=== PATIENT | male | born 1950 | race African-American/Black ===

== ENCOUNTER 2016-05-02 05:41 | Inpatient (IN) | payer MEDICARE, BC ==
[2016-04-20 12:23] LABS: HEMATOCRIT 43.2 % (40.0-51.0); HEMOGLOBIN 14.4 g/dL (13.6-17.8)
[2016-04-20 12:42] LABS: CALCIUM, SERUM 9.1 MG/DL (8.5-10.4); CHLORIDE, SERUM 104 MMOL/L (96-112); CO2 (CARBON DIOXIDE) 28 MMOL/L (24-34); GFR AFRICAN AMERICAN 90 ML/MIN (>=60); GFR NON AFRICAN AMERICAN 78 ML/MIN (>=60); GLUCOSE, SERUM 96 MG/DL (60-99); POTASSIUM, SERUM 3.6 MMOL/L (3.5-5.3); SODIUM, SERUM 139 MMOL/L (135-148)
[2016-04-20 12:45] LABS: BUN (BLOOD UREA NITROGEN) 17 MG/DL (6-23)
--- NOTE | ~2016-05-02 | OP ---
Record Of Operation [facility] [address] [place]. [address] NAME: VINNIE GUERRERO : 46 STATUS : ADM IN PAT#: [id number] AGE: 66 ADM/REG DATE : 05/02/16 MR#: [id number] REPORT SERV DATE: 05/02/16 DICTATED BY: GERMÁN ROJO DATE: 05/02/16 REPORT STATUS : Draft TRANSCRIBED BY: MODL DATE: 05/02/16 DATE OF PROCEDURE: 05/02/2016 PREOPERATIVE DIAGNOSIS: Prostate cancer. POSTOPERATIVE DIAGNOSIS: Prostate cancer. PROCEDURE: Robotic-assisted laparoscopic radical prostatectomy. SURGEON: Germán Rojo M.D. PINKED EDGE SEWING MACHINE OPERATOR: DMITRIY Chappell. ANESTHESIA: General. PREOPERATIVE INDICATIONS: 66-year-old male with a negative family history of prostate cancer, presented with a PSA of 6.2, associated with a low percent free PSA of 6%. Biopsies disclosed a [place] 7, 4+3 prostate cancer on the right. Staging studies were negative. After reviewing his options, risks, alternatives, and benefits, he elected surgical management with a robotic approach. DESCRIPTION OF OPERATIVE PROCEDURE: Following adequate general anesthesia, the patient was placed in a modified lithotomy position well padded and secured to the table and placed in a steep Trendelenburg position. He was noted to be safely secured to the table and was returned to a level position where he was prepped and draped in the usual sterile fashion. A 16-Zimbabwean catheter was placed into the bladder from the operative field. Pneumoperitoneum was achieved with a Veress needle. A 12 mm port was placed in the left upper quadrant with the Optiview system. The camera was placed into the abdomen. The abdomen inspected. There were no abnormal findings. Under direct vision, the four robotic ports were placed as well as a left lower quadrant 5 mm port. The patient was then returned to a Trendelenburg position and docked to the robot. The bladder was taken down by incising laterally along the median umbilical ligaments to the level of the vas deferens bilaterally with the electrocautery shandra. The space of Retzius was developed bluntly. Fat was dissected off the anterior surface of the prostate sharply. The endopelvic fascia was incised bilaterally and a levator muscle swept off the lateral surface of the prostate bilaterally. The dorsal vein complex was dissected out, controlled, and divided with an endovascular JOVAN stapler. The bladder neck was incised at its junction with the base of the prostate with the electrocautery spatula. The bladder was entered. The catheter was grasped with a ProGrasp grasper and used for anterior retraction on the prostate. The posterior bladder neck was developed and incised with electrocautery spatula. A plane was bluntly developed between the prostate and bladder. Anterior Denonvilliers fascia was incised to expose the vas deferens and seminal vesicles. The vas deferens were dissected out bluntly, divided sharply, and the ends of the vas deferens grasped with the ProGrasp grasper and used for anterior retraction on the prostate. The seminal vesicles were dissected out bluntly. Their blood supply controlled with interlocking clips and then divided sharply at their Record Of Operation [address] [place]. [address] NAME: VINNIE GUERRERO : 46 STATUS : ADM IN PAT#: [id number] AGE: 66 ADM/REG DATE : 05/02/16 MR#: [id number] REPORT SERV DATE: 05/02/16 DICTATED BY: GERMÁN ROJO DATE: 05/02/16 REPORT STATUS : Draft TRANSCRIBED BY: PADDY DATE: 05/02/16 base. The bladder neck was inspected and did require some minor reconstruction with two [id number] 3-0 Vicryl sutures at the 3 and 9 o'clock positions taking care to avoid the ureteral orifices. Posterior Denonvilliers fascia was incised and a plane was bluntly developed between the rectum and prostate. The levator fascia was incised bilaterally. The left neurovascular bundle was bluntly and easily dissected away from the posterior lateral surface of the prostate. The right neurovascular bundle was intentionally sacrificed in view of his high- volume high-risk disease. The pedicles were controlled with interlocking clips and divided sharply with a round-tip scissors. The urethra was dissected out with the round-tip scissors. The dorsal vein complex was secured to the pubic periosteum with a figure-of- eight 2-0 Monocryl suture. The urethra was then divided sharply at the prostatourethral junction. The catheter was withdrawn. The posterior urethra was divided as well as remaining apical attachments and the prostate was freed. A right laparoscopic lymph node dissection was planned, but due to a dense amount of inflammatory fat increasing the risk for vascular injury. I decided against the right laparoscopic lymph node dissection. The prostate was then placed in an EndoCatch sac and placed out of the view of the operative field. The pelvis was irrigated with sterile water and antibiotic solution and carefully inspected. There was excellent hemostasis and no apparent rectal injury. Posterior Denonvilliers fascia was reapproximated to the posterior urethral plate with a running 3-0 V-Loc suture in a Ryan stitch fashion. The urethrovesical anastomosis was performed with a running 3-0 V-Loc suture over 20-Zimbabwean catheter. The balloon was filled with 10 mL of sterile water. The bladder was irrigated with sterile water, and there was a watertight anastomosis. A 19 Lucas drain was passed through one of the robotic ports and placed into the pelvis. The port was removed, its exit site demonstrating good hemostasis. The drain was fixed to the skin with 2-0 Prolene suture. The patient was de-docked from the robot and returned to a level position. The remaining trocars were removed under direct vision, their exit sites demonstrating good hemostasis. The periumbilical port was used to guide a transverse fascial incision to allow intact retrieval of the specimen. This was closed with five interrupted #1 Ethibond sutures. The periumbilical wound and port sites were irrigated with antibiotic solution, and skin edges reapproximated with skin clips. The drain was left to grenade suction. The catheter was left to gravity drainage. Bandages were applied, and the procedure was concluded. He was awakened from his anesthesia, had tolerated it well, and transferred to the recovery room in satisfactory condition. SEBAS/PADDY Germán Rojo M.D. / [id number] CC: Record Of Operation [address] [address] NAME: VINNIE GUERRERO : 46 STATUS : ADM IN [facility]#: [id number] AGE: 66 ADM/REG DATE : 05/02/16 MR#: [id number] REPORT SERV DATE: 05/02/16 DICTATED BY: GERMÁN ROJO DATE: 05/02/16 REPORT STATUS : Draft TRANSCRIBED BY: MODL DATE: 05/02/16 Germán Rojo M.D.
[~2016-05-02 05:41] MED LIST: CHOLEST OFF OR; DIOVAN HCT320 MG/25 PO; FISH-EPA1000 MG PO; GLUCCHONDR PO; MULTI-VIT HP OR; PRIMROSE; SAW PALMETTO; TAZTIA XT
[2016-05-02 13:03] LABS: HEMATOCRIT 41.5 % (40.0-51.0); HEMOGLOBIN 13.7 g/dL (13.6-17.8)
[2016-05-02 13:14] LABS: CREATININE 1.15 MG/DL (0.70-1.30); POTASSIUM, SERUM 3.3 MMOL/L (3.5-5.3)
== END 2016-05-03 13:05 | disposition home or self-care (01) | DRG 708 ==
LOC: SDC/OF 05:41 → PACU 12:40 → 4SO 17:13
PROVIDERS: Urology
PROC: 07TC4ZZ Resection of Pelvis Lymphatic, Percutaneous Endoscopic Approach (ICD-10-PCS; 2016-05-02)
PROC: 8E0W4CZ Robotic Assisted Procedure of Trunk Region, Percutaneous Endoscopic Approach (ICD-10-PCS; 2016-05-02)
PROC: 0VT04ZZ Resection of Prostate, Percutaneous Endoscopic Approach (ICD-10-PCS; principal; 2016-05-02 07:30)
DX: C61 Malignant neoplasm of prostate (principal); I10 Essential (primary) hypertension; K21.9 Gastro-esophageal reflux disease without esophagitis; M19.90 Unspecified osteoarthritis, unspecified site; Z87.442 Personal history of urinary calculi
CPT/HCPCS: 80048; 82565; 84132; 85014; 85018; 88309; 88342; 93005; 97110-GP; 97161-GP; A9270-GY; G8990-CH-GP; G8991-CH-GP; G8992-CH-GP; J0690; J1885; J2250; J2405; J2710; J2795; J3010

== ENCOUNTER 2016-06-30 05:50 | Emergency (ER) | payer MEDICARE, BC | END 2016-06-30 06:16 | disposition home or self-care (01) | LOC: ER 05:50 | DX: M79.672 Pain in left foot (principal); I10 Essential (primary) hypertension; K21.9 Gastro-esophageal reflux disease without esophagitis; Z87.442 Personal history of urinary calculi; Z85.46 Personal history of malignant neoplasm of prostate; Z91.09 Other allergy status, other than to drugs and biological substances; Z79.899 Other long term (current) drug therapy | CPT/HCPCS: 73630-LT; 96372; 99283; J1170; J2550 ==